=== PATIENT | female | born 1980 | race Native Hawaiian/Other Pacific Islander ===

== ENCOUNTER 2018-03-24 11:49 | Emergency (ER) | payer OTHER, MEDICAID, SELFPAY ==
[2018-03-24 12:04] VITALS: BP 133/76; PULSE 73; RESP 12; TEMP 36.1; O2SAT 99
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
[2018-03-24 13:32] VITALS: BP 126/85; PULSE 83; RESP 16; O2SAT 97
== END 2018-03-24 13:14 | disposition home or self-care (01) ==
PROVIDERS: Emergency Provider Internal Medicine; Family Provider Family Medicine; PCP Family Medicine
DX: S13.4XXA Sprain of ligaments of cervical spine, initial encounter (principal); V49.60XA Unspecified car occupant injured in collision with unspecified motor vehicles in traffic accident, initial encounter
CPT/HCPCS: 99282; 99283

== ENCOUNTER → 2020-02-01 15:44 | Outpatient (CLI) | payer OTHER, SELFPAY | PROVIDERS: Family Provider Family Medicine; PCP Family Medicine; Visit Provider Nurse Practitioner | DX: R30.0 Dysuria (principal) | CPT/HCPCS: 87077; 87086; 87186 ==